=== PATIENT | female | born 1980 | race African-American/Black ===

== ENCOUNTER 2017-12-04 04:50 | Emergency (ER) | payer SELFPAY ==
[2017-12-04] MEDS ORDERED: methylPREDNISolone Sod Succ/PF 125 MG/2 ML VIAL ONE (05:20)
== END 2017-12-04 05:39 | disposition home or self-care (01) ==
LOC: NAV ERS 04:50
DX: L50.0 Allergic urticaria (principal); D64.9 Anemia, unspecified; I10 Essential (primary) hypertension; Z79.899 Other long term (current) drug therapy
CPT/HCPCS: 96372; J2930